=== PATIENT | female | born 1995 | race African-American/Black ===

== ENCOUNTER 2018-07-28 00:37 | Emergency (ER) | payer OTHER | END 2018-07-28 00:44 | disposition left against medical advice (07) | LOC: MW.ED 00:37 | DX: Z53.21 Procedure and treatment not carried out due to patient leaving prior to being seen by health care provider (principal) ==

== ENCOUNTER 2018-08-29 14:11 | Observation (INO) | payer OTHER | END 2018-08-29 19:20 | disposition home or self-care (01) | LOC: MW.OBCHECK 14:11 → MW.OB 14:20 → MW.OBCHECK 15:05 → MW.OB 15:06 | PROVIDERS: ADMIT Obstetrics & Gynecology; ATTEND Obstetrics & Gynecology | DX: O36.8130 Decreased fetal movements, third trimester, not applicable or unspecified (principal); O99.89 Other specified diseases and conditions complicating pregnancy, childbirth and the puerperium; R10.9 Unspecified abdominal pain | CPT/HCPCS: 36415; 59025; 85007; 85027; 85384; 85730; G0378; 81001 ==